=== PATIENT | male | born 2000 | race Caucasian/White ===

== ENCOUNTER 2019-01-30 22:51 | Emergency (ER) | payer BC ==
[2019-01-30 23:04] VITALS: BP 115/64
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
[2019-01-30 23:50] VITALS: PULSE 87; O2SAT 98
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
== END 2019-01-30 23:48 | disposition home or self-care (01) ==
LOC: ED 22:51
DX: S60.211A Contusion of right wrist, initial encounter (principal); Y04.0XXA Assault by unarmed brawl or fight, initial encounter
CPT/HCPCS: 73130; 99283; L3908